=== PATIENT | male | born 1990 | race Hispanic/Latino ===

== ENCOUNTER 2016-12-28 23:08 | Inpatient (IN) | payer OTHER ==
[2016-12-28] MEDS ORDERED: Sodium Chloride 0.9% 1,000 ML IV STA (23:29)
[2016-12-28 23:47] LABS: BASO % 0.5 % (0.0-2.0); EOS # 0.1 K/uL (0.0-0.7); HEMATOCRIT 45.6 % (35.0-51.0); LYMPH # 2.6 K/uL (1.0-4.3); MEAN CORPUSCULAR HEMOGLOBIN 28.8 pg (27.0-31.0); MEAN CORPUSCULAR HGB CONC 33.9 g/dL (33.0-37.0); MEAN PLATELET VOLUME 9.4 fl (7.2-11.7); MONO # 0.5 K/uL (0.0-0.8); MONO % 6.1 % (0.0-10.0); NEUT # 5.2 K/uL (1.8-7.0); NEUT % 61.4 % (50.0-75.0); WHITE BLOOD COUNT 8.4 K/uL (4.8-10.8)
--- NOTE | 2016-12-28 23:50 | ED PDOC ---
HPI: General Adult Time Seen by Provider: 12/28/16 23:26 Chief Complaint (Nursing): Upper Extremity Problem/Injury Chief Complaint (Provider): swelling and pain to b/l upper arms History Per: Patient History/Exam Limitations: no limitations Onset/Duration Of Symptoms: Days Have you had recent travel within the past 21 days to any of the following countries: [place], [place], [place] or [place]?: No Current Symptoms Are (Timing): Still Present Additional Complaint(s): 26yo male presents to the ED with c/o swelling and pain to b/l upper arms. Patient reports having rigorous workout on Monday (2 days prior) and then waking up Monday morning with swelling and a lot of pain to both of his arms. Patient states he has been drinking a lot of water because one of his family members has had rhabdo in the past. Taking advil without relief. Denies back pain, discoloration of urine, fever, or any other medical complaints. Past Medical History Reviewed: Historical Data, Nursing Documentation, Vital Signs Vital Signs: Last Vital Signs Temp 97.8 F 12/30/16 07:40 Pulse 60 12/30/16 07:40 Resp 20 12/30/16 07:40 BP 117/67 12/30/16 07:40 Pulse Ox 99 12/30/16 07:40 - Medical History PMH: No Chronic Diseases - Surgical History Surgical History: No Surg Hx - Family History Family History: States: No Known Family Hx - Social History Current smoker - smoking cessation education provided: No Alcohol: None Drugs: Denies - Home Medications Home Medications: Ambulatory Orders Medication Instructions Recorded Escitalopram [Lexapro] 20 mg PO DAILY 12/29/16 - Allergies Allergies/Adverse Reactions: Allergies Allergy/AdvReac Type Severity Reaction Status Date / Time No Known Allergies Allergy Verified 12/28/16 23:18 Review of Systems ROS Statement: Except As Marked, All Systems Reviewed And Found Negative Constitutional: Negative for: Fever Genitourinary Male: Positive for: Other (no discoloration of urine ) Musculoskeletal: Positive for: Other (swelling and pain to b/l upper arms ). Negative for: Back Pain Physical Exam - Reviewed Nursing Documentation Reviewed: Yes Vital Signs Reviewed: Yes - Physical Exam Appears: Positive for: Well, No Acute Distress Head Exam: Positive for: ATRAUMATIC, NORMAL INSPECTION, NORMOCEPHALIC Skin: Positive for: Normal Color, Warm, Dry Eye Exam: Positive for: Normal appearance, EOMI, PERRL ENT: Positive for: Normal ENT Inspection Neck: Positive for: Normal, Painless ROM, Supple Cardiovascular/Chest: Positive for: Regular Rate, Rhythm. Negative for: Murmur , Tachycardia Respiratory: Positive for: Normal Breath Sounds. Negative for: Wheezing, Respiratory Distress Pulses-Radial (L): 2+ Pulses-Radial (R): 2+ Gastrointestinal/Abdominal: Positive for: Normal Exam, Soft. Negative for: Tenderness Back: Positive for: Normal Inspection. Negative for: L CVA Tenderness, R CVA Tenderness Extremity: Positive for: Tenderness (b/l upper arms tender to palpation ), Other (decreased ROM to both elbows secondary to pain, sensation intact, 5/5 strength ). Negative for: Deformity Neurologic/Psych: Positive for: Alert, Oriented. Negative for: Motor/Sensory Deficits - Laboratory Results Result Diagrams: 12/30/16 07:00 12/30/16 07:00 - ECG O2 Sat by Pulse Oximetry: 100 Pulse Ox Interpretation: Normal (RA) Medical Decision Making Medical Decision Makin: Impression: r/o rhabdo Plan: Labs Morphine 2mg IV, IVF reassess Scribe Attestation: Documented by Lori Donahue acting as a scribe for Ann Khanna MD. Provider Scribe Attestation: All medical record entries made by the Scribe were at my direction and personally dictated by me. I have reviewed the chart and agree that the record accurately reflects my personal performance of the history, physical exam, medical decision making, and the department course for this patient. I have also personally directed, reviewed, and agree with the discharge instructions and disposition. Disposition - Clinical Impression Clinical Impression: Rhabdomyolysis - Disposition Disposition: Transfer of Care Disposition Time: 00:00 Condition: STABLE Patient Signed Over To: Shen Bustillos Handoff Comments: Pending labs.
[2016-12-28 23:57] LABS: ALB/GLOB RATIO 1.6 (1.0-2.1); ALKALINE PHOSPHATASE 50 U/L (38-126); ALT/SGPT 306 U/L (21-72); BILIRUBIN,TOTAL 0.8 mg/dl (0.2-1.3); BLOOD UREA NITROGEN 22 mg/dl (9-20); CALCIUM 9.6 mg/dL (8.4-10.2); CARBON DIOXIDE 25 mmol/L (22-30); CHLORIDE 101 mmol/L (98-107); GFR AFRICAN-AMERICAN > 60; GLUCOSE,RANDOM 104 mg/dL (75-110); SODIUM 139 mmol/l (132-148); TOTAL PROTEIN 7.9 G/DL (6.3-8.2)
--- NOTE | 2016-12-29 | ED PDOC ---
- Laboratory Results Result Diagrams: 12/28/16 23:31 12/28/16 23:31 - ECG O2 Sat by Pulse Oximetry: 100 Medical Decision Making Medical Decision Making: Patient s/o from Dr. Khanna at 0000 pending labs and re-eval. CPK > 100K, will admit to med/surgángela informed of admission. Scribe Attestation: Documented by Lori Donahue acting as a scribe for Shen Bustillos MD. Provider Scribe Attestation: All medical record entries made by the Scribe were at my direction and personally dictated by me. I have reviewed the chart and agree that the record accurately reflects my personal performance of the history, physical exam, medical decision making, and the department course for this patient. I have also personally directed, reviewed, and agree with the discharge instructions and disposition. Disposition - Clinical Impression Clinical Impression: Rhabdomyolysis - POA Present On Arrival: None - Disposition Disposition: Admitted as In-Patient Disposition Time: 01:08 Condition: STABLE
[2016-12-29 00:06] LABS: AST/SGOT 1273 U/L (17-59)
[2016-12-29 00:40] LABS: RBC URINE < 1 /hpf (0-3); URINE BILIRUBIN NEGATIVE (NEGATIVE); URINE BLOOD LARGE (NEGATIVE); URINE COLOR YELLOW (YELLOW); URINE GLUCOSE (UA) NEG (Normal); URINE KETONE NEGATIVE (NEGATIVE); URINE LEUKOCYTE ESTERASE NEG Leu/uL (Negative); URINE PROTEIN 100 mg/dL (NEGATIVE); URINE UROBILINOGEN 0.2-1.0 mg/dL (0.2-1.0); WBC URINE < 1 /hpf (0-5)
[2016-12-29 00:51] LABS: PARTIAL THROMBOPLASTIN TIME 27.6 SECONDS (23.3-32.5)
[2016-12-29] MEDS ORDERED: Sodium Chloride 0.9% 1,000 ML IV SCH (01:15)
[2016-12-29] MEDS: Sodium Chloride 0.9% 1,000 ML IV SCH ×10 (01:47→22:15)
--- NOTE | 2016-12-29 07:00 | CP.PCM.CON ---
History of Present Illness - History of Present Illness History of Present Illness: reason for consult : rhabdomyolysis with cpk > 100 k all emr reviewed .. labs reviewed .. pr was seen and examined 26yo male presents to the ED with c/o swelling and pain to b/l upper arms. Patient reports having rigorous workout on Monday (2 days prior) and then waking up Monday morning with swelling and a lot of pain to both of his arms. Patient states he has been drinking a lot of water because one of his family members has had rhabdo in the past. Taking advil without relief. Denies back pain, discoloration of urine, fever, or any other medical complaints. Past Patient History - Past Medical History & Family History Past Medical History?: Yes - Past Social History Smoking Status: Never Smoked - CARDIAC Hx Cardiac Disorders: No - PULMONARY Hx Respiratory Disorders: No - NEUROLOGICAL Hx Neurological Disorder: No - HEENT Hx HEENT Problems: No - RENAL Hx Chronic Kidney Disease: No - ENDOCRINE/METABOLIC Hx Endocrine Disorders: No - HEMATOLOGICAL/ONCOLOGICAL Hx Blood Disorders: No - INTEGUMENTARY Hx Dermatological Problems: No - MUSCULOSKELETAL/RHEUMATOLOGICAL Hx Musculoskeletal Disorders: Yes Hx Falls: No Hx Rhabdomyolysis: Yes (admitted for rhabdo) - GASTROINTESTINAL Hx Gastrointestinal Disorders: No - GENITOURINARY/GYNECOLOGICAL Hx Genitourinary Disorders: No - PSYCHIATRIC Hx Psychophysiologic Disorder: Yes Hx Anxiety: Yes Hx Substance Use: No - SURGICAL HISTORY Hx Surgeries: Yes Other/Comment: Rhinoplasy 2011 - ANESTHESIA Hx Anesthesia: Yes Hx Anesthesia Reactions: No Hx Malignant Hyperthermia: No Meds Allergies/Adverse Reactions: Allergies Allergy/AdvReac Type Severity Reaction Status Date / Time No Known Allergies Allergy Verified 12/28/16 23:18 - Medications Medications: Current Medications Sodium Chloride (Sodium Chloride 0.9%) 1,000 mls @ 1,000 mls/hr IV .Q1H [place] Stop: 12/29/16 23:56 Last Admin: 12/29/16 02:40 Dose: Not Given Sodium Chloride (Sodium Chloride 0.9%) 1,000 mls @ 1,000 mls/hr IV .Q1H [place] Stop: 12/30/16 01:03 Last Admin: 12/29/16 02:38 Dose: 1,000 mls/hr Sodium Chloride (Sodium Chloride 0.9%) 1,000 mls @ 250 mls/hr IV .Q4H [place] Stop: 12/30/16 01:46 Last Admin: 12/29/16 04:00 Dose: 250 mls/hr Morphine Sulfate (Morphine) 2 mg IV Q4 PRN PRN Reason: Pain, moderate (4-7) Last Admin: 12/29/16 04:37 Dose: 2 mg Results - Vital Signs Recent Vital Signs: Last Vital Signs Temp 97.9 F 12/29/16 02:53 Pulse 79 12/29/16 02:53 Resp 20 12/29/16 02:53 BP 138/88 12/29/16 02:53 Pulse Ox 96 12/29/16 02:53 - Labs Result Diagrams: 12/28/16 23:31 12/28/16 23:31 Assessment & Plan - Assessment and Plan (Free Text) Assessment: RHABDOMYOLYSIS WITH CPK > 100 K .. 2/2 EXECIVE EXERCISE C/O IVF NS AT 250 CC/H REPEAT CPK IN AM WILL F/U CLOSELY - Date & Time Date: 12/29/16 Time: 07:00
[2016-12-29 07:59] LABS: HEMATOCRIT 40.6 % (35.0-51.0); MEAN CELL VOLUME 84.6 fl (80.0-94.0); MEAN CORPUSCULAR HGB CONC 34.3 g/dL (33.0-37.0); RED CELL DISTRIBUTION WIDTH 12.8 % (11.5-14.5); WHITE BLOOD COUNT 5.8 K/uL (4.8-10.8)
[2016-12-29 08:06] LABS: ALB/GLOB RATIO 1.5 (1.0-2.1); ALKALINE PHOSPHATASE 42 U/L (38-126); ALT/SGPT 273 U/L (21-72); BILIRUBIN,TOTAL 0.8 mg/dl (0.2-1.3); BLOOD UREA NITROGEN 16 mg/dl (9-20); CALCIUM 8.3 mg/dL (8.4-10.2); CARBON DIOXIDE 23 mmol/L (22-30); CHLORIDE 108 mmol/L (98-107); GFR AFRICAN-AMERICAN > 60; GLUCOSE,RANDOM 87 mg/dL (75-110); POTASSIUM 4.1 MMOL/L (3.6-5.0); SODIUM 140 mmol/l (132-148); TOTAL PROTEIN 5.9 G/DL (6.3-8.2)
[2016-12-29 08:20] LABS: AST/SGOT 1063 U/L (17-59)
--- NOTE | 2016-12-29 08:26 | CP.PCM.HP ---
History of Present Illness - History of Present Illness History of Present Illness: pt admitted for rhabdo w/ cpk [id number] at present is comfortable but presented with inability to move arms. no f/c, n/v/d. Present on Admission - Present on Admission Any Indicators Present on Admission: No Review of Systems - Musculoskeletal Musculoskeletal: As Per HPI, Myalgias Past Patient History - Past Medical History & Family History Past Medical History?: Yes - Past Social History Smoking Status: Never Smoked - CARDIAC Hx Cardiac Disorders: No - PULMONARY Hx Respiratory Disorders: No - NEUROLOGICAL Hx Neurological Disorder: No - HEENT Hx HEENT Problems: No - RENAL Hx Chronic Kidney Disease: No - ENDOCRINE/METABOLIC Hx Endocrine Disorders: No - HEMATOLOGICAL/ONCOLOGICAL Hx Blood Disorders: No - INTEGUMENTARY Hx Dermatological Problems: No - MUSCULOSKELETAL/RHEUMATOLOGICAL Hx Musculoskeletal Disorders: Yes Hx Falls: No Hx Rhabdomyolysis: Yes (admitted for rhabdo) - GASTROINTESTINAL Hx Gastrointestinal Disorders: No - GENITOURINARY/GYNECOLOGICAL Hx Genitourinary Disorders: No - PSYCHIATRIC Hx Psychophysiologic Disorder: Yes Hx Anxiety: Yes Hx Substance Use: No - SURGICAL HISTORY Hx Surgeries: Yes Other/Comment: Rhinoplasy 2010 - ANESTHESIA Hx Anesthesia: Yes Hx Anesthesia Reactions: No Hx Malignant Hyperthermia: No Meds Allergies/Adverse Reactions: Allergies Allergy/AdvReac Type Severity Reaction Status Date / Time No Known Allergies Allergy Verified 12/28/16 23:18 Physical Exam - Constitutional Appears: Well, Non-toxic, No Acute Distress - Head Exam Head Exam: ATRAUMATIC, NORMAL INSPECTION, NORMOCEPHALIC - Eye Exam Eye Exam: EOMI, Normal appearance, PERRL Pupil Exam: NORMAL ACCOMODATION, PERRL - ENT Exam ENT Exam: Mucous Membranes Moist, Normal Exam - Neck Exam Neck exam: Positive for: Normal Inspection - Respiratory Exam Respiratory Exam: Clear to Auscultation Bilateral, NORMAL BREATHING PATTERN - Cardiovascular Exam Cardiovascular Exam: REGULAR RHYTHM, RRR, +S1, +S2 - GI/Abdominal Exam GI & Abdominal Exam: Normal Bowel Sounds, Soft. absent: Tenderness - Extremities Exam Extremities exam: Positive for: normal inspection - Back Exam Back exam: NORMAL INSPECTION - Neurological Exam Neurological exam: Alert, CN II-XII Intact, Normal Gait, Oriented x3, Reflexes Normal - Psychiatric Exam Psychiatric exam: Normal Affect, Normal Mood - Skin Skin Exam: Dry, Intact, Normal Color, Warm Results - Vital Signs Recent Vital Signs: Last Vital Signs Temp 97.7 F 12/29/16 07:42 Pulse 64 12/29/16 07:42 Resp 20 12/29/16 07:42 BP 125/81 12/29/16 07:42 Pulse Ox 98 12/29/16 07:42 - Labs Result Diagrams: 12/29/16 07:00 12/29/16 07:00 Labs: Laboratory Results - last 24 hr 12/29/16 12/29/16 07:00 07:00 WBC 5.8 RBC 4.80 Hgb 13.9 Hct 40.6 MCV 84.6 MCH 29.0 MCHC 34.3 RDW 12.8 Plt Count 162 Sodium 140 Potassium 4.1 Chloride 108 H Carbon Dioxide 23 Anion Gap 13 BUN 16 Creatinine 0.9 Est GFR ( Amer) > 60 Est GFR (Non-Af Amer) > 60 Random Glucose 87 Calcium 8.3 L Total Bilirubin 0.8 AST 1063 H ALT 273 H Alkaline Phosphatase 42 Total Protein 5.9 L Albumin 3.5 D Globulin 2.4 Albumin/Globulin Ratio 1.5 Assessment & Plan (1) DVT prophylaxis Assessment and Plan: scd and ae hose ambulation Status: Acute (2) Rhabdomyolysis Assessment and Plan: ivf nephro trend cpk, bun/cr, lft gi as indication pain control Status: Acute Decision To Admit - Pt Status Changed To: Hospital Disposition Of: Inpatient - Admit Certification Admit to Inpatient:: After my assessment, the patient will require hospitalization for at least two midnights. This is because of the severity of symptoms shown, intensity of services needed, and/or the medical risk in this patient being treated as an outpatient. - . Bed Request Type: Med/Surg Admitting Physician: Derrek Mustafa
--- NOTE | 2016-12-29 08:31 | CARD ---
APPROVED REPORT EKG Measurement Heart [id number] <Conclusion> Normal sinus rhythm with sinus arrhythmia Incomplete right bundle branch block Borderline ECG
[2016-12-29] MEDS ORDERED: Oxycodone/Acetaminophen 5/325 mg Tab PO PRN (18:41)
--- NOTE | 2016-12-29 19:49 | CP.PCM.PN ---
Subjective - Date & Time of Evaluation Date of Evaluation: 12/29/16 Time of Evaluation: 15:00 - Subjective Subjective: SEEN ON RENAL F/U RHABDO BETTER Objective - Vital Signs/Intake and Output Vital Signs (last 24 hours): Temp Pulse Resp BP Pulse Ox 98.1 F 67 18 120/68 98 12/29/16 16:34 12/29/16 16:34 12/29/16 16:34 12/29/16 16:34 12/29/16 16:34 - Medications Medications: Current Medications Sodium Chloride (Sodium Chloride 0.9%) 1,000 mls @ 1,000 mls/hr IV .Q1H [place] Stop: 12/29/16 23:56 Last Admin: 12/29/16 02:40 Dose: Not Given Sodium Chloride (Sodium Chloride 0.9%) 1,000 mls @ 1,000 mls/hr IV .Q1H [place] Stop: 12/30/16 01:03 Last Admin: 12/29/16 02:38 Dose: 1,000 mls/hr Sodium Chloride (Sodium Chloride 0.9%) 1,000 mls @ 250 mls/hr IV .Q4H [place] Stop: 12/30/16 01:46 Last Admin: 12/29/16 19:28 Dose: 250 mls/hr Ketorolac Tromethamine (Toradol) 30 mg IVP Q6 PRN PRN Reason: Pain, Mild (1-3) Morphine Sulfate (Morphine) 2 mg IV Q4 PRN PRN Reason: Pain, severe (8-10) Oxycodone/Acetaminophen (Percocet 5/325 Mg Tab) 1 tab PO Q4 PRN PRN Reason: Pain, moderate (4-7) Stop: 01/01/17 18:42 - Labs Labs: 12/29/16 07:00 12/29/16 07:00 PT 11.3 SECONDS (9.6-11.2) H 12/29/16 00:20 INR 1.09 (0.92-1.08) H 12/29/16 00:20 APTT 27.6 SECONDS (23.3-32.5) 12/29/16 00:20 Assessment and Plan - Assessment and Plan (Free Text) Assessment: C/O IVF
[2016-12-30] MEDS: Sodium Chloride 0.9% 1,000 ML IV SCH (02:00)
[2016-12-30 07:20] LABS: BASO % 0.4 % (0.0-2.0); EOS # 0.2 K/uL (0.0-0.7); EOS % 2.6 % (0.0-4.0); LYMPH # 2.1 K/uL (1.0-4.3); LYMPH % 36.1 % (20.0-40.0); MEAN CELL VOLUME 86.2 fl (80.0-94.0); MEAN CORPUSCULAR HEMOGLOBIN 29.4 pg (27.0-31.0); MEAN CORPUSCULAR HGB CONC 34.1 g/dL (33.0-37.0); MEAN PLATELET VOLUME 9.5 fl (7.2-11.7); MONO # 0.5 K/uL (0.0-0.8); MONO % 9.2 % (0.0-10.0); NEUT # 3.1 K/uL (1.8-7.0); NEUT % 51.7 % (50.0-75.0); NRBC % 0.1 % (0.0-0.0); RED CELL DISTRIBUTION WIDTH 13.2 % (11.5-14.5); WHITE BLOOD COUNT 5.9 K/uL (4.8-10.8)
--- NOTE | 2016-12-30 07:29 | CP.PCM.PN ---
Subjective - Date & Time of Evaluation Date of Evaluation: 12/30/16 Time of Evaluation: 07:28 - Subjective Subjective: doing well, no dsitress/pain/compalints lft still elevated, cpk [id number]. nephro note appriciated no f/c, n/v/d. Objective - Vital Signs/Intake and Output Vital Signs (last 24 hours): Temp Pulse Resp BP Pulse Ox 98.3 F 102 H 20 127/88 99 12/30/16 00:32 12/30/16 00:32 12/30/16 00:32 12/30/16 00:32 12/30/16 00:32 - Medications Medications: Current Medications Sodium Chloride (Sodium Chloride 0.9%) 2,000 mls @ 250 mls/hr IV .Q8H [place] Stop: 12/31/16 06:45 Ketorolac Tromethamine (Toradol) 30 mg IVP Q6 PRN PRN Reason: Pain, Mild (1-3) Morphine Sulfate (Morphine) 2 mg IV Q4 PRN PRN Reason: Pain, severe (8-10) Oxycodone/Acetaminophen (Percocet 5/325 Mg Tab) 1 tab PO Q4 PRN PRN Reason: Pain, moderate (4-7) Stop: 01/01/17 18:42 - Labs Labs: 12/30/16 07:00 12/29/16 07:00 PT 11.3 SECONDS (9.6-11.2) H 12/29/16 00:20 INR 1.09 (0.92-1.08) H 12/29/16 00:20 APTT 27.6 SECONDS (23.3-32.5) 12/29/16 00:20 - Constitutional Appears: Well, Non-toxic, No Acute Distress - Head Exam Head Exam: ATRAUMATIC, NORMAL INSPECTION, NORMOCEPHALIC - Eye Exam Eye Exam: EOMI, Normal appearance, PERRL Pupil Exam: NORMAL ACCOMODATION, PERRL - ENT Exam ENT Exam: Mucous Membranes Moist, Normal Exam - Neck Exam Neck Exam: Full ROM, Normal Inspection. absent: Lymphadenopathy - Respiratory Exam Respiratory Exam: Clear to Ausculation Bilateral, NORMAL BREATHING PATTERN - Cardiovascular Exam Cardiovascular Exam: REGULAR RHYTHM, RRR, +S1, +S2. absent: Murmur - GI/Abdominal Exam GI & Abdominal Exam: Soft, Normal Bowel Sounds. absent: Tenderness - Extremities Exam Extremities Exam: Full ROM, Normal Capillary Refill, Normal Inspection. absent : Joint Swelling, Pedal Edema - Back Exam Back Exam: NORMAL INSPECTION - Neurological Exam Neurological Exam: Alert, Awake, CN II-XII Intact, Normal Gait, Oriented x3 - Psychiatric Exam Psychiatric exam: Normal Affect, Normal Mood - Skin Skin Exam: Dry, Intact, Normal Color, Warm Assessment and Plan (1) DVT prophylaxis Status: Acute (2) Rhabdomyolysis Status: Acute - Assessment and Plan (Free Text) Assessment: (1) DVT prophylaxis Assessment and Plan: scd and ae hose ambulation Status: Acute (2) Rhabdomyolysis Assessment and Plan: ivf nephro trend cpk, bun/cr, lft gi as indication pain control Status: Acute 3-elev lft-kenia r/t gillian, will get gi consult and do abd us
[2016-12-30 07:48] LABS: ALB/GLOB RATIO 1.5 (1.0-2.1); ALKALINE PHOSPHATASE 42 U/L (38-126); ALT/SGPT 345 U/L (21-72); BILIRUBIN,TOTAL 0.6 mg/dl (0.2-1.3); BLOOD UREA NITROGEN 9 mg/dl (9-20); CARBON DIOXIDE 27 mmol/L (22-30); CHLORIDE 107 mmol/L (98-107); GFR AFRICAN-AMERICAN > 60; GLUCOSE,RANDOM 96 mg/dL (75-110); POTASSIUM 4.2 MMOL/L (3.6-5.0); SODIUM 140 mmol/l (132-148); TOTAL PROTEIN 6.3 G/DL (6.3-8.2)
[2016-12-30 08:00] LABS: AST/SGOT 1052 U/L (17-59)
[2016-12-30] MEDS: Sodium Chloride 0.9% 2,000 ML IV SCH ×2 (10:00→22:45)
--- NOTE | 2016-12-30 17:50 | US ---
HISTORY: Elevated LFTs. Rhabdomyolysis. COMPARISON: None. TECHNIQUE: Sonographic evaluation of the abdomen. FINDINGS: LIVER: Measures 14.9 cm. Patent portal vein. Portal venous flow: Hepatopetal. Unremarkeable echogenicity of the liver parenchyma. No mass. No intrahepatic bile duct dilatation. GALLBLADDER: Unremarkable. No gallstones. COMMON BILE DUCT: Measures 2.0 mm. No stones. No dilatation. PANCREAS: Unremarkable as visualized. No mass. No ductal dilatation. RIGHT KIDNEY: Measures 4.5 x 11.5cm. Normal echogenicity. No calculus, mass, or hydronephrosis. LEFT KIDNEY: Measures 5.511.2cm. Normal echogenicity. No calculus, mass, or hydronephrosis. SPLEEN: Splenomegaly. Orthogonal measurements 4.9 x 5.5 x 16.6 cm. Abnormal echo characteristics suggest a diffuse and infiltrative process in the spleen. AORTA: No aneurysmal dilatation. IVC: Unremarkable. OTHER FINDINGS: None. IMPRESSION: Splenomegaly, markedly abnormal echo characteristics suggest an infiltrative process. No discrete masses are identified.
[2016-12-31] MEDS: Sodium Chloride 0.9% 1,000 ML IV SCH ×2 (06:08→07:00)
[2016-12-31] MEDS: Sodium Chloride 0.9% 2,000 ML IV SCH (06:42)
--- NOTE | 2016-12-31 08:19 | CP.PCM.PN ---
Subjective - Date & Time of Evaluation Date of Evaluation: 12/30/16 Time of Evaluation: 13:00 - Subjective Subjective: SEEN ON RENAL F/U FEELS MUCH BETTER UPPER BODY MUSCLE PAIN AND TENDERNESS MUCH BETTER ON NS AT 250 CC/H FOR RHABDO Objective - Vital Signs/Intake and Output Vital Signs (last 24 hours): Temp Pulse Resp BP Pulse Ox 97.5 F L 67 18 118/71 98 12/31/16 00:53 12/31/16 00:53 12/31/16 00:53 12/31/16 00:53 12/31/16 00:53 - Medications Medications: Current Medications Escitalopram Oxalate (Lexapro) 20 mg PO DAILY [place] Last Admin: 12/30/16 12:10 Dose: 20 mg Ketorolac Tromethamine (Toradol) 30 mg IVP Q6 PRN PRN Reason: Pain, Mild (1-3) Morphine Sulfate (Morphine) 2 mg IV Q4 PRN PRN Reason: Pain, severe (8-10) Oxycodone/Acetaminophen (Percocet 5/325 Mg Tab) 1 tab PO Q4 PRN PRN Reason: Pain, moderate (4-7) Stop: 01/01/17 18:42 - Labs Labs: 12/30/16 07:00 12/30/16 07:00 PT 11.3 SECONDS (9.6-11.2) H 12/29/16 00:20 INR 1.09 (0.92-1.08) H 12/29/16 00:20 APTT 27.6 SECONDS (23.3-32.5) 12/29/16 00:20 Assessment and Plan - Assessment and Plan (Free Text) Assessment: RHABDOMYOLYSIS .. CPK GETING BETTER C/O IVF
[2016-12-31 10:23] LABS: ALB/GLOB RATIO 1.6 (1.0-2.1); ALKALINE PHOSPHATASE 45 U/L (38-126); ALT/SGPT 390 U/L (21-72); BILIRUBIN,TOTAL 0.6 mg/dl (0.2-1.3); BLOOD UREA NITROGEN 11 mg/dl (9-20); CALCIUM 9.2 mg/dL (8.4-10.2); CARBON DIOXIDE 29 mmol/L (22-30); CHLORIDE 103 mmol/L (98-107); GFR AFRICAN-AMERICAN > 60; GLUCOSE,RANDOM 134 mg/dL (75-110); SODIUM 140 mmol/l (132-148); TOTAL PROTEIN 6.4 G/DL (6.3-8.2)
[2016-12-31 10:30] LABS: AST/SGOT 988 U/L (17-59)
--- NOTE | 2016-12-31 19:35 | CP.PCM.PN ---
Subjective - Date & Time of Evaluation Date of Evaluation: 12/31/16 Time of Evaluation: 08:00 - Subjective Subjective: Pt is feeling better, CPK [id number], no new complaints Objective - Vital Signs/Intake and Output Vital Signs (last 24 hours): Temp Pulse Resp BP Pulse Ox 98.4 F 65 18 143/88 97 12/31/16 16:33 12/31/16 16:33 12/31/16 16:33 12/31/16 16:33 12/31/16 16:33 - Medications Medications: Current Medications Escitalopram Oxalate (Lexapro) 20 mg PO DAILY [place] Last Admin: 12/31/16 09:57 Dose: 20 mg Ketorolac Tromethamine (Toradol) 30 mg IVP Q6 PRN PRN Reason: Pain, Mild (1-3) Morphine Sulfate (Morphine) 2 mg IV Q4 PRN PRN Reason: Pain, severe (8-10) Oxycodone/Acetaminophen (Percocet 5/325 Mg Tab) 1 tab PO Q4 PRN PRN Reason: Pain, moderate (4-7) Stop: 01/01/17 18:42 - Labs Labs: 12/30/16 07:00 12/31/16 07:30 PT 11.3 SECONDS (9.6-11.2) H 12/29/16 00:20 INR 1.09 (0.92-1.08) H 12/29/16 00:20 APTT 27.6 SECONDS (23.3-32.5) 12/29/16 00:20 - Constitutional Appears: Well - Head Exam Head Exam: ATRAUMATIC - Eye Exam Eye Exam: Normal appearance Pupil Exam: NORMAL ACCOMODATION - ENT Exam ENT Exam: Mucous Membranes Moist - Neck Exam Neck Exam: Full ROM - Respiratory Exam Respiratory Exam: Clear to Ausculation Bilateral, NORMAL BREATHING PATTERN - Cardiovascular Exam Cardiovascular Exam: REGULAR RHYTHM - Rectal Exam Rectal Exam: NORMAL INSPECTION - Extremities Exam Extremities Exam: Normal Inspection - Back Exam Back Exam: NORMAL INSPECTION - Neurological Exam Neurological Exam: Awake, Oriented x3 Assessment and Plan - Assessment and Plan (Free Text) Plan: 26 y/o male with Rhabdomyolysis cont IVF repeat labs in am nephro consult appreciated
[2017-01-01] MEDS: Sodium Chloride 0.9% 1,000 ML IV SCH ×4 (04:00→20:45)
[2017-01-01 09:22] LABS: ALB/GLOB RATIO 1.6 (1.0-2.1); ALKALINE PHOSPHATASE 41 U/L (38-126); ALT/SGPT 366 U/L (21-72); AST/SGOT 708 U/L (17-59); BILIRUBIN,TOTAL 0.7 mg/dl (0.2-1.3); BLOOD UREA NITROGEN 12 mg/dl (9-20); CALCIUM 9.2 mg/dL (8.4-10.2); CARBON DIOXIDE 27 mmol/L (22-30); CHLORIDE 105 mmol/L (98-107); GFR AFRICAN-AMERICAN > 60; GLUCOSE,RANDOM 95 mg/dL (75-110); POTASSIUM 4.1 MMOL/L (3.6-5.0); SODIUM 140 mmol/l (132-148); TOTAL PROTEIN 6.5 G/DL (6.3-8.2)
--- NOTE | 2017-01-01 10:21 | CP.PCM.PN ---
Subjective - Date & Time of Evaluation Date of Evaluation: 01/01/17 Time of Evaluation: 09:00 - Subjective Subjective: pt feeling much better. myalgia is improving. no new complaints. tolerating po. Objective - Vital Signs/Intake and Output Vital Signs (last 24 hours): Temp Pulse Resp BP Pulse Ox 97.9 F 61 20 129/76 98 01/01/17 08:21 01/01/17 08:21 01/01/17 08:21 01/01/17 08:21 01/01/17 08:21 - Medications Medications: Current Medications Escitalopram Oxalate (Lexapro) 20 mg PO DAILY [place] Last Admin: 01/01/17 08:39 Dose: 20 mg Ketorolac Tromethamine (Toradol) 30 mg IVP Q6 PRN PRN Reason: Pain, Mild (1-3) Morphine Sulfate (Morphine) 2 mg IV Q4 PRN PRN Reason: Pain, severe (8-10) Oxycodone/Acetaminophen (Percocet 5/325 Mg Tab) 1 tab PO Q4 PRN PRN Reason: Pain, moderate (4-7) Stop: 01/01/17 18:42 - Labs Labs: 12/30/16 07:00 01/01/17 06:45 PT 11.3 SECONDS (9.6-11.2) H 12/29/16 00:20 INR 1.09 (0.92-1.08) H 12/29/16 00:20 APTT 27.6 SECONDS (23.3-32.5) 12/29/16 00:20 - Constitutional Appears: Well, Non-toxic - Head Exam Head Exam: NORMAL INSPECTION - Eye Exam Eye Exam: EOMI, Normal appearance Pupil Exam: NORMAL ACCOMODATION - ENT Exam ENT Exam: Mucous Membranes Moist - Neck Exam Neck Exam: Full ROM - Respiratory Exam Respiratory Exam: Clear to Ausculation Bilateral, NORMAL BREATHING PATTERN - Cardiovascular Exam Cardiovascular Exam: REGULAR RHYTHM - GI/Abdominal Exam GI & Abdominal Exam: Normal Bowel Sounds - Extremities Exam Extremities Exam: Full ROM Assessment and Plan - Assessment and Plan (Free Text) Assessment: 26 y/o male with rhabdomyolysis LFT's improving CPK pending pt feeling better cont to monitor cont IVF
--- NOTE | 2017-01-01 12:02 | CP.PCM.PN ---
Subjective - Date & Time of Evaluation Date of Evaluation: 12/31/16 Time of Evaluation: 14:00 - Subjective Subjective: SEEN ON RENAL F/U FEELS MUCH BETTER CPK GOING DOWN SLOWLY AND GRADUALLY RENAL FUNCTION BACK TO NORMAL Objective - Vital Signs/Intake and Output Vital Signs (last 24 hours): Temp Pulse Resp BP Pulse Ox 97.9 F 61 20 129/76 98 01/01/17 08:21 01/01/17 08:21 01/01/17 08:21 01/01/17 08:21 01/01/17 08:21 - Medications Medications: Current Medications Escitalopram Oxalate (Lexapro) 20 mg PO DAILY [place] Last Admin: 01/01/17 08:39 Dose: 20 mg Ketorolac Tromethamine (Toradol) 30 mg IVP Q6 PRN PRN Reason: Pain, Mild (1-3) Morphine Sulfate (Morphine) 2 mg IV Q4 PRN PRN Reason: Pain, severe (8-10) Oxycodone/Acetaminophen (Percocet 5/325 Mg Tab) 1 tab PO Q4 PRN PRN Reason: Pain, moderate (4-7) Stop: 01/01/17 18:42 - Labs Labs: 12/30/16 07:00 01/01/17 06:45 PT 11.3 SECONDS (9.6-11.2) H 12/29/16 00:20 INR 1.09 (0.92-1.08) H 12/29/16 00:20 APTT 27.6 SECONDS (23.3-32.5) 12/29/16 00:20 Assessment and Plan - Assessment and Plan (Free Text) Assessment: RHABDO ON IVF C/O CURRENT CARE
[2017-01-02] MEDS: Sodium Chloride 0.9% 2,000 ML IV SCH (00:44)
[2017-01-02] MEDS: Sodium Chloride 0.9% 1,000 ML IV SCH ×6 (00:53→21:09)
[2017-01-02 07:59] LABS: BASO % 0.5 % (0.0-2.0); EOS # 0.1 K/uL (0.0-0.7); EOS % 2.6 % (0.0-4.0); HEMATOCRIT 39.3 % (35.0-51.0); LYMPH # 1.8 K/uL (1.0-4.3); LYMPH % 39.2 % (20.0-40.0); MEAN CELL VOLUME 84.8 fl (80.0-94.0); MEAN CORPUSCULAR HEMOGLOBIN 29.4 pg (27.0-31.0); MEAN CORPUSCULAR HGB CONC 34.6 g/dL (33.0-37.0); MEAN PLATELET VOLUME 9.4 fl (7.2-11.7); MONO # 0.3 K/uL (0.0-0.8); MONO % 7.3 % (0.0-10.0); NEUT # 2.3 K/uL (1.8-7.0); NEUT % 50.4 % (50.0-75.0); NRBC % 0.2 % (0.0-0.0); WHITE BLOOD COUNT 4.6 K/uL (4.8-10.8)
[2017-01-02 08:31] LABS: ALB/GLOB RATIO 1.6 (1.0-2.1); ALKALINE PHOSPHATASE 39 U/L (38-126); ALT/SGPT 308 U/L (21-72); AST/SGOT 406 U/L (17-59); BILIRUBIN,TOTAL 0.5 mg/dl (0.2-1.3); BLOOD UREA NITROGEN 12 mg/dl (9-20); CALCIUM 8.9 mg/dL (8.4-10.2); CARBON DIOXIDE 28 mmol/L (22-30); CHLORIDE 105 mmol/L (98-107); GFR AFRICAN-AMERICAN > 60; GLUCOSE,RANDOM 87 mg/dL (75-110); SODIUM 138 mmol/l (132-148); TOTAL PROTEIN 6.1 G/DL (6.3-8.2)
--- NOTE | 2017-01-02 08:36 | CON ---
DATE: 12/30/2016 REFERRING PHYSICIAN: Dr. Gipson. REASON FOR CONSULTATION: Elevated LFTs, rhabdomyolysis. HISTORY OF PRESENT ILLNESS: This is a 26-year-old man who essentially was working out too hard, jaosn ot move his arms and has severe arm pain, came to the hospital, was found to have rhabdomyolysis, silverio vated LFTs for which GI was called. The patient feels better now. Urine is clearing up. Lying in b ed, comfortable, no apparent distress. PAST MEDICAL HISTORY: As above. PAST SURGICAL HISTORY: As above. MEDICATIONS: Have been reviewed. REVIEW OF SYSTEMS: All other systems have been reviewed and negative apart from HPI. PHYSICAL EXAMINATION: VITAL SIGNS: Here in the hospital are grossly unremarkable ____. HEAD: Normocephalic, atraumatic. EYES: Pupils equally reactive to light bilaterally. No pallor or icterus. NECK: Supple, normal range of motion, no lymphadenopathy. LUNGS: Coarse breath sounds bilaterally. HEART: S1, S2. Regular rate and rhythm. No murmurs appreciated. ABDOMEN: Soft, nontender. Bowel sounds present. No rebound, no guarding. RECTAL: Deferred. EXTREMITIES: Pulses present bilaterally. SKIN: Warm, dry and intact. NEUROLOGIC: Alert and oriented x 3. LABORATORY DATA: Labs reviewed. WBC is 5.9, hemoglobin 14.0, INR 1.1. AST, ALT ____ 1273/306 ____ normal. Now they are ____ . Alkaline phosphatase has been normal. CPKs were 110,000, now down to 80, 000. ASSESSMENT AND PLAN: This is a 26-year-old man with rhabdomyolysis and secondary elevation of LFTs. From a gastrointestinal standpoint, aggressive IV hydration, ultrasound for now. Hepatitis A, B and C to be ordered. Otherwise, from a GI standpoint, advance diet as tolerated. Thank you for the consult. Martell Gutierrez MD, PhD cc: [id number] TT: 12/30/2016 15:03:04 Confirmation # [id number] Dictation # [id number] wero
--- NOTE | 2017-01-02 14:43 | CP.PCM.PN ---
Subjective - Date & Time of Evaluation Date of Evaluation: 01/02/17 Time of Evaluation: 14:40 - Subjective Subjective: no overnight events Objective - Vital Signs/Intake and Output Vital Signs (last 24 hours): Temp Pulse Resp BP Pulse Ox 97.8 F 65 18 137/81 97 01/02/17 07:35 01/02/17 07:35 01/02/17 07:35 01/02/17 07:35 01/02/17 07:35 - Medications Medications: Current Medications Escitalopram Oxalate (Lexapro) 20 mg PO DAILY [facility] Last Admin: 01/02/17 08:53 Dose: 20 mg Sodium Chloride (Sodium Chloride 0.9%) 1,000 mls @ 250 mls/hr IV .Q4H [place] Stop: 01/03/17 13:23 Ketorolac Tromethamine (Toradol) 30 mg IVP Q6 PRN PRN Reason: Pain, Mild (1-3) - Labs Labs: 01/02/17 06:40 01/02/17 06:40 PT 11.3 SECONDS (9.6-11.2) H 12/29/16 00:20 INR 1.09 (0.92-1.08) H 12/29/16 00:20 APTT 27.6 SECONDS (23.3-32.5) 12/29/16 00:20 - GI/Abdominal Exam GI & Abdominal Exam: Soft, Normal Bowel Sounds Assessment and Plan - Assessment and Plan (Free Text) Assessment: 26 yo male with rhabdomyolsis lft improving iv hydration
--- NOTE | 2017-01-02 15:23 | CP.PCM.PN ---
Subjective - Date & Time of Evaluation Date of Evaluation: 01/02/17 Time of Evaluation: 03:00 - Subjective Subjective: pt feeling much better. CK approx 20K, pt on ivf. no new complaints. Objective - Vital Signs/Intake and Output Vital Signs (last 24 hours): Temp Pulse Resp BP Pulse Ox 97.8 F 65 18 137/81 97 01/02/17 07:35 01/02/17 07:35 01/02/17 07:35 01/02/17 07:35 01/02/17 07:35 - Medications Medications: Current Medications Escitalopram Oxalate (Lexapro) 20 mg PO DAILY [facility] Last Admin: 01/02/17 08:53 Dose: 20 mg Sodium Chloride (Sodium Chloride 0.9%) 1,000 mls @ 250 mls/hr IV .Q4H [place] Stop: 01/03/17 13:23 Ketorolac Tromethamine (Toradol) 30 mg IVP Q6 PRN PRN Reason: Pain, Mild (1-3) - Labs Labs: 01/02/17 06:40 01/02/17 06:40 PT 11.3 SECONDS (9.6-11.2) H 12/29/16 00:20 INR 1.09 (0.92-1.08) H 12/29/16 00:20 APTT 27.6 SECONDS (23.3-32.5) 12/29/16 00:20 - Constitutional Appears: Well, Non-toxic - Head Exam Head Exam: NORMAL INSPECTION - Eye Exam Eye Exam: EOMI, Normal appearance Pupil Exam: NORMAL ACCOMODATION - ENT Exam ENT Exam: Mucous Membranes Moist - Neck Exam Neck Exam: Full ROM - Respiratory Exam Respiratory Exam: Clear to Ausculation Bilateral, NORMAL BREATHING PATTERN - Cardiovascular Exam Cardiovascular Exam: REGULAR RHYTHM - GI/Abdominal Exam GI & Abdominal Exam: Soft, Normal Bowel Sounds - Extremities Exam Extremities Exam: Full ROM, Normal Inspection Assessment and Plan - Assessment and Plan (Free Text) Assessment: 26 y/o male with rhabdomyolysis cont ivf recheck ck in am d/c planning for am.
--- NOTE | 2017-01-02 19:56 | CP.PCM.PN ---
Subjective - Date & Time of Evaluation Date of Evaluation: 01/02/17 Time of Evaluation: 15:00 - Subjective Subjective: FEELS MUCH BETTER CPK DOWN TO 20 K RENAL FUNCTION BACK TO WNL ON NS AT 200 CC/H Objective - Vital Signs/Intake and Output Vital Signs (last 24 hours): Temp Pulse Resp BP Pulse Ox 98.3 F 69 16 153/80 H 97 01/02/17 15:48 01/02/17 15:48 01/02/17 15:48 01/02/17 15:48 01/02/17 15:48 - Medications Medications: Current Medications Escitalopram Oxalate (Lexapro) 20 mg PO DAILY [facility] Last Admin: 01/02/17 08:53 Dose: 20 mg Sodium Chloride (Sodium Chloride 0.9%) 1,000 mls @ 250 mls/hr IV .Q4H [facility] Stop: 01/03/17 13:23 Last Admin: 01/02/17 17:10 Dose: 250 mls/hr Ketorolac Tromethamine (Toradol) 30 mg IVP Q6 PRN PRN Reason: Pain, Mild (1-3) - Labs Labs: 01/02/17 06:40 01/02/17 06:40 PT 11.3 SECONDS (9.6-11.2) H 12/29/16 00:20 INR 1.09 (0.92-1.08) H 12/29/16 00:20 APTT 27.6 SECONDS (23.3-32.5) 12/29/16 00:20 Assessment and Plan - Assessment and Plan (Free Text) Assessment: RHABDOMYOLYSIS .. BETTER JOSE .. BETTER C/O CURRENT CARE OK FOR D/C IN AM .. SHOULD HAVE CPK RAWN AN OUT PT
[2017-01-03] MEDS: Sodium Chloride 0.9% 1,000 ML IV SCH ×3 (01:16→08:54)
[2017-01-03 01:34] VITALS: RESP 18
[2017-01-03 07:33] VITALS: BP 132/81; PULSE 58; TEMP 98.5; O2SAT 99
[2017-01-03 08:23] LABS: ALB/GLOB RATIO 1.5 (1.0-2.1); ALKALINE PHOSPHATASE 39 U/L (38-126); ALT/SGPT 267 U/L (21-72); AST/SGOT 234 U/L (17-59); BILIRUBIN,TOTAL 0.4 mg/dl (0.2-1.3); BLOOD UREA NITROGEN 9 mg/dl (9-20); CALCIUM 8.8 mg/dL (8.4-10.2); CARBON DIOXIDE 26 mmol/L (22-30); CHLORIDE 105 mmol/L (98-107); GFR AFRICAN-AMERICAN > 60; GLUCOSE,RANDOM 88 mg/dL (75-110); POTASSIUM 3.9 MMOL/L (3.6-5.0); SODIUM 141 mmol/l (132-148); TOTAL PROTEIN 6.2 G/DL (6.3-8.2)
--- NOTE | 2017-01-03 10:15 | CP.PCM.DIS ---
Provider - Provider Date of Admission: 12/29/16 00:59 Attending physician: Derrek Mustafa MD Primary care physician: Zachary Saini MD Consults: MD Gissel Melgar Time Spent in preparation of Discharge (in minutes): 30 Diagnosis - Discharge Diagnosis (1) Rhabdomyolysis Status: Acute Hospital Course - Lab Results Lab Results: Most Recent Lab Values WBC 4.6 K/uL (4.8-10.8) L 01/02/17 06:40 RBC 4.64 Mil/uL (4.40-5.90) 01/02/17 06:40 Hgb 13.6 g/dL (12.0-18.0) 01/02/17 06:40 Hct 39.3 % (35.0-51.0) 01/02/17 06:40 MCV 84.8 fl (80.0-94.0) 01/02/17 06:40 MCH 29.4 pg (27.0-31.0) 01/02/17 06:40 MCHC 34.6 g/dL (33.0-37.0) 01/02/17 06:40 RDW 13.0 % (11.5-14.5) 01/02/17 06:40 Plt Count 146 K/uL (130-400) 01/02/17 06:40 MPV 9.4 fl (7.2-11.7) 01/02/17 06:40 Neut % (Auto) 50.4 % (50.0-75.0) 01/02/17 06:40 Lymph % (Auto) 39.2 % (20.0-40.0) 01/02/17 06:40 [place] % (Auto) 7.3 % (0.0-10.0) 01/02/17 06:40 Eos % (Auto) 2.6 % (0.0-4.0) 01/02/17 06:40 Baso % (Auto) 0.5 % (0.0-2.0) 01/02/17 06:40 Neut # 2.3 K/uL (1.8-7.0) 01/02/17 06:40 Lymph # 1.8 K/uL (1.0-4.3) 01/02/17 06:40 [place] # 0.3 K/uL (0.0-0.8) 01/02/17 06:40 Eos # 0.1 K/uL (0.0-0.7) 01/02/17 06:40 Baso # 0.0 K/uL (0.0-0.2) 01/02/17 06:40 PT 11.3 SECONDS (9.6-11.2) H 12/29/16 00:20 INR 1.09 (0.92-1.08) H 12/29/16 00:20 APTT 27.6 SECONDS (23.3-32.5) 12/29/16 00:20 Sodium 141 mmol/l (132-148) 01/03/17 07:35 Potassium 3.9 MMOL/L (3.6-5.0) 01/03/17 07:35 Chloride 105 mmol/L (98-107) 01/03/17 07:35 Carbon Dioxide 26 mmol/L (22-30) 01/03/17 07:35 Anion Gap 14 (10-20) 01/03/17 07:35 BUN 9 mg/dl (9-20) 01/03/17 07:35 Creatinine 0.9 mg/dL (0.8-1.5) 01/03/17 07:35 Est GFR ( Amer) > 60 01/03/17 07:35 Est GFR (Non-Af Amer) > 60 01/03/17 07:35 Random Glucose 88 mg/dL (75-110) 01/03/17 07:35 Calcium 8.8 mg/dL (8.4-10.2) 01/03/17 07:35 Total Bilirubin 0.4 mg/dl (0.2-1.3) 01/03/17 07:35 AST 234 U/L (17-59) H D 01/03/17 07:35 ALT 267 U/L (21-72) H 01/03/17 07:35 Alkaline Phosphatase 39 U/L (38-126) 01/03/17 07:35 Total Creatine Kinase 9674 U/L (55-170) H 01/03/17 07:35 Total Protein 6.2 G/DL (6.3-8.2) L 01/03/17 07:35 Albumin 3.7 g/dL (3.5-5.0) 01/03/17 07:35 Globulin 2.5 gm/dL (2.2-3.9) 01/03/17 07:35 Albumin/Globulin Ratio 1.5 (1.0-2.1) 01/03/17 07:35 Urine Color Yellow (YELLOW) 12/29/16 00:30 Urine Clarity Clear (Clear) 12/29/16 00:30 Urine pH 6.0 (5.0-8.0) 12/29/16 00:30 Ur Specific [place] 1.017 (1.003-1.030) 12/29/16 00:30 Urine Protein 100 mg/dL (NEGATIVE) 12/29/16 00:30 Urine Glucose (UA) Neg mg/dL (Normal) 12/29/16 00:30 Urine Ketones Negative mg/dL (NEGATIVE) 12/29/16 00:30 Urine Blood Large (NEGATIVE) 12/29/16 00:30 Urine Nitrate Negative (NEGATIVE) 12/29/16 00:30 Urine Bilirubin Negative (NEGATIVE) 12/29/16 00:30 Urine Urobilinogen 0.2-1.0 mg/dL (0.2-1.0) 12/29/16 00:30 Ur Leukocyte Esterase Neg [place]/uL (Negative) 12/29/16 00:30 Urine RBC (Auto) < 1 /hpf (0-3) 12/29/16 00:30 Urine Microscopic WBC < 1 /hpf (0-5) 12/29/16 00:30 Urine Myoglobin TNP 12/29/16 12:14 Hepatitis A IgM Ab Negative (NEGATIVE) 12/31/16 07:30 Hep Bs Antigen Negative (NEGATIVE) 12/31/16 07:30 Hep B Core IgM Ab Negative (NEGATIVE) 12/31/16 07:30 Hepatitis C Antibody Negative (NEGATIVE) 12/31/16 07:30 Discharge Exam - Head Exam Head Exam: NORMAL INSPECTION Discharge Plan - Follow Up Plan Condition: STABLE Disposition: HOME/ ROUTINE Instructions: Rhabdomyolysis (DC) Additional Instructions: Followup in 3 days.
== END 2017-01-03 11:00 | disposition home or self-care (01) | DRG 558 ==
LOC: H.ER 23:08 → H.ERHOLD 12-29 00:59 → H.MEDSURG1 12-29 02:10
PROVIDERS: ADMIT Family Medicine; ATTEND Family Medicine
DX: M62.82 Rhabdomyolysis (principal); N17.9 Acute kidney failure, unspecified